=== PATIENT | male | born 1985 | race Caucasian/White ===

== ENCOUNTER → 2018-01-17 | Outpatient (CLI) | payer OTHER, MEDICAID, SELFPAY | LOC: M RAD 15:49 | DX: R10.814 Left lower quadrant abdominal tenderness (principal) | CPT/HCPCS: 76705 ==

== ENCOUNTER → 2018-01-30 | Outpatient (CLI) | payer OTHER ==
[~2018-01-30] MED LIST: GASTROGRAFIN SOLUTION 30ML (Q9963) As Ordered; ISOVUE-370 76% 100ML VIAL (Q9967) As Ordered
== END ==
LOC: M RAD 07:36
DX: R10.814 Left lower quadrant abdominal tenderness (principal); R10.32 Left lower quadrant pain; Z90.81 Acquired absence of spleen
CPT/HCPCS: Q9963

== ENCOUNTER 2022-05-11 01:15 | Emergency (ER) | payer OTHER, SELFPAY ==
[~2022-05-11] VITALS: Ht 190.5 cm; Wt 86.4 kg
[2022-05-11 02:40] LABS: BASO # 0.1 10^3/uL (0.0-0.2); BASO % 0.6 % (0.0-1.0); EOS # 0.1 10^3/uL (0.0-0.5); EOS % 0.6 % (0.0-3.0); HEMATOCRIT 41.6 % (42.0-52.0); HEMOGLOBIN 14.1 g/dl (13.5-17.5); LYMPH # 2.2 10^3/uL (1.5-5.0); LYMPH % 13.4 % (24.0-44.0); MEAN CORPUSCULAR HEMOGLOBIN 30.1 pg (27.0-33.0); MEAN CORPUSCULAR HGB CONC 33.9 g/dl (32.0-36.5); MEAN CORPUSCULAR VOLUME 88.7 fl (80.0-96.0); MONO # 1.3 10^3/uL (0.0-0.8); NEUTROPHILS # 12.5 10^3/uL (1.5-8.5); PLATELET COUNT, AUTOMATED 257 10^3/uL (150-450); RED BLOOD COUNT 4.69 10^6/uL (4.30-6.10); WHITE BLOOD COUNT 16.3 10^3/uL (4.0-10.0)
[2022-05-11 03:00] LABS: LIPASE 47 U/L (12-53)
[2022-05-11 03:02] LABS: ALKALINE PHOSPHATASE 62 U/L (46-116); ALT/SGPT 38 U/L (7.0-40); AST/SGOT 32 U/L (<34); BILIRUBIN,DIRECT 0.3 MG/DL (<0.4); BILIRUBIN,TOTAL 0.9 MG/DL (0.3-1.2); BLOOD UREA NITROGEN 19 MG/DL (9-23); CALCIUM LEVEL 9.5 MG/DL (8.5-10.1); CARBON DIOXIDE LEVEL 28 MMOL/L (20-31); CHLORIDE LEVEL 102 MMOL/L (98-107); CREATININE FOR GFR 1.12 MG/DL (0.70-1.30); GLOMERULAR FILTRATION RATE > 60.0 (>60); GLUCOSE, FASTING 111 MG/DL (60-100); SODIUM LEVEL 139 MMOL/L (136-145)
[2022-05-11] MEDS ORDERED: ONDANSETRON 4MG 2ML VIAL IV ONE (08:25)
[2022-05-11] MEDS ORDERED: NS 1,000 ML IV ONE ×2 (08:25→10:05)
[2022-05-11] MEDS ORDERED: KETOROLAC 30 MG/ML 1ML VIAL IV ONE (09:00)
[2022-05-11] MEDS ORDERED: PROZ40CA PO (09:10)
[2022-05-11 10:31] LABS: RSV AMPLIFICATION NEGATIVE (NEGATIVE)
[2022-05-11 10:36] LABS: INR 1.04; PROTHROMBIN TIME 13.8 SECONDS (12.5-14.5)
[2022-05-11 10:37] LABS: PARTIAL THROMBOPLASTIN TIME 27.5 SECONDS (24.8-34.2)
[2022-05-11] MEDS ORDERED: AUGMENTIN 875 MG TAB PO ONE (11:35)
[2022-05-11] MEDS ORDERED: ONDA4TAB6 PO (11:44)
[2022-05-11] MEDS ORDERED: AMOX875T2 PO (12:03)
[2022-05-11 12:10] VITALS: BP 111/54
== END 2022-05-11 12:17 | disposition home or self-care (01) ==
LOC: M ED 01:15
DX: K52.9 Noninfective gastroenteritis and colitis, unspecified (principal); E86.0 Dehydration; Z79.899 Other long term (current) drug therapy; F17.200 Nicotine dependence, unspecified, uncomplicated
CPT/HCPCS: 36415; 74176; 80048; 80076; 81002; 83690; 85025; 85610; 85730; 87631; 96361; 96374; 96375; 99284; J2405